=== PATIENT | male | born 1980 | race Caucasian/White ===

== ENCOUNTER 2025-01-26 17:19 | Emergency (ER) | payer BC, SELFPAY ==
[2025-01-26 17:22] VITALS: BP 160/89
--- NOTE | 2025-01-26 18:41 | ED.GENMED ---
History of Present Illness
General
Chief Complaint: Foreign Body Ingestion
Source: patient
Exam Limitations: none
Time Seen by Provider: 01/26/25 18:40
Nursing documentation reviewed up to this point in time: agreed with
History of Present Illness
History of Present Illness:
Patient to ED for possible swallowed FB. States he was at the dentist today and the tip of the dental probe broke off. Brought self to ED for eval. Denies any abd. pain.
Past History
Past History
ED Past Medical History: None
ED Past Surgical History: Orthopedic
Social History
Tobacco: Non-smoker
Review of Systems
Review of Systems
Allergies reviewed?: Yes
All Other Systems: ROS reviewed and negative except as documented in HPI and ROS
Constitutional: Reports no symptoms
EENT: Reports no symptoms
Respiratory: Reports no symptoms
Cardiac: Reports no symptoms
ABD/GI: Reports other (Possible swallowed FB - dental probe tip)
: Reports no symptoms
Musculoskeletal: Reports no symptoms
Skin: Reports no symptoms
Neurological: Reports no symptoms
Psychiatric: Reports no symptoms
Phy Exam
General Physical Exam
General Presentation: well appearing and no apparent distress
General age: appears stated age
General Skin: warm and dry
General Habitus: normal
General Mental: alert
Pulmonary Exam
Pulmonary Exam: lungs clear and no respiratory distress
Gastrointestinal Exam
Gastrointestinal Exam: non tender and soft
Musculoskeletal Exam
Musculoskeletal Exam: full ROM and neuro vasc intact
Skin Exam
Skin Exam: normal color, warm/dry and no rash
Psychiatric Exam
Psychiatric Exam: normal mood/affect
Course
Orders/Labs/Results
Orders:
Orders
01/26/25 17:44
CR Abdomen - 1 View Urgent
Comment:
Reason For Exam: swallowed small piece of metal at dentist
Chest Single View Frontal CR [CR Chest Single View] Urgent
Comment:
Reason For Exam: swallowed small piece of metal at dentist
Vital Signs
Initial and Last Documented VS:
Initial Vital Signs
Temp Pulse Resp BP Pulse Ox
98.2 F 81 16 160/89 100
01/26/25 17:22 01/26/25 17:22 01/26/25 17:22 01/26/25 17:22 01/26/25 17:22
Last Documented Vital Signs
Temp Pulse Resp BP Pulse Ox
98.2 F 81 16 160/89 100
01/26/25 17:22 01/26/25 17:22 01/26/25 17:22 01/26/25 17:22 01/26/25 17:22
*Radiology
Radiology exam reviewed: radiology read reviewed
*Pulse Oximetry
SaO2: 100
Oxygen Mode of Delivery: Room air
Patient hypoxic: no
*Critical Care Note
Total Time (30-74mins, 75-104mins- exclusive of procedures): Not Applicable
Update Note
Update Note:
xray confirms metalic foreign body in stomach consistent with tip of dental probe. Dr. Garner notified, xray sent via tiger text. Ok for discharge, metalic piece should pass on own. Discussed this with patient. Discussed s/s to return to ED and
he is agreeable to plan.
ED Attending Note
-
Portions of this chart may have been created with voice recognition software.� Occasional wrong word or��sound alike� substitutions may have occurred due to the inherent limitations of voice recognition software.
Discharge Plan
Departure
Patient Disposition: Home (Routine Discharge)
Date of Disposition: 01/26/25
Time of Disposition: 19:22
Patient with high blood pressure during this ER visit?: No
Condition: Good
Covid-19: Not Applicable
Discharge Problem:
Foreign body, swallowed
Instructions: Swallowed Objects, Adult (DC)
Activity Restrictions/Additional Instructions:
Follow up with your family doctor. Return to the emergency department immediately for fever/chills, abdominal pain, nausea, vomiting or for any further concerns.
Interventions
Interventions:
*Risk Screen - Suicide Last Done: 01/26/25 17:22
*Neglect/Abuse Screening Last Done: 01/26/25 17:22
Discharge Date and Time
Print Language: WOLOF
== END 2025-01-26 19:32 | disposition home or self-care (01) ==
LOC: EMR 17:19
PROVIDERS: EMERGENCY PHYSICIAN Emergency Medicine
DX: T18.2XXA Foreign body in stomach, initial encounter (principal); W44.8XXA Other foreign body entering into or through a natural orifice, initial encounter
CPT/HCPCS: 99284; 71045; 74018

== ENCOUNTER → 2025-02-03 15:52 | Outpatient (REF) | payer BC, SELFPAY | LOC: RAD 15:52 | PROVIDERS: ATTENDING PHYSICIAN Registered Nurse; FAMILY PHYSICIAN Nurse Practitioner Adult Health | DX: T18.9XXD Foreign body of alimentary tract, part unspecified, subsequent encounter (principal) | CPT/HCPCS: 74018 ==